=== PATIENT | female | born 1940 | race Hispanic/Latino ===

== ENCOUNTER → 2017-02-13 | Outpatient (CLI) | payer MEDICARE ==
[~2017-02-13] MED LIST: AEC81 PO; ALEN70TA47 PO; ATOR20TA65 PO; CARV12.580 PO; FE F1CAP8 PO; FURO20TA4 PO; FURO40TA7 PO; HYDR-4153 PO; INSLAN SQ; INSNOV SQ; Isosorbide Mono 30MG Tab Sr PO; LISI-613 PO; METO2.5T2 PO; METO50TA18 PO; SIME80TA12 PO; TRAM50TA4 PO; VIT D3 PO
== END | disposition home or self-care (01) ==
LOC: SHCH 08:02
PROVIDERS: ATTEND Internal Medicine Cardiovascular Disease
DX: I34.0 Nonrheumatic mitral (valve) insufficiency (principal); I44.7 Left bundle-branch block, unspecified
CPT/HCPCS: 93306

== ENCOUNTER 2017-02-27 14:10 | Inpatient (IN) | payer MEDICARE ==
[~2017-02-27] VITALS: Ht 152.4 cm; Wt 61.8 kg
[2017-02-27] MEDS ORDERED: ASPIRIN 325 MG TABLET ONE (14:39)
[2017-02-27] MEDS ORDERED: FUROSEMIDE 10 MG/ML 4ML VIAL ONE ×2 (14:39→16:18)
[2017-02-27 15:02] LABS: BASOPHILS % (AUTO) 1.4 % (0.0-5.0); EOSINOPHILS % (AUTO) 2.2 % (0.0-8.0); HEMATOCRIT 36.4 % (36-48); MEAN CORPUSCULAR HEMOGLOBIN 28.1 pg (27.0-33.0); MEAN CORPUSCULAR HGB CONC 31.9 g/dL (32.0-36.0); MEAN CORPUSCULAR VOLUME 87.8 fL (79-99); NEUTROPHILS % (AUTO) 64.4 % (40.0-77.0); PLATELET COUNT (AUTO) 259 K/uL (130-400); RED BLOOD CELL COUNT(AUTO) 4.14 MIL/uL (4.00-5.50); WHITE BLOOD COUNT (AUTO) 5.2 K/uL (4.8-10.8)
[2017-02-27 15:18] LABS: INR 1.09 (0.85-1.15); PARTIAL THROMBOPLASTIN TIME 32.2 SEC (26.3-35.5); PROTHROMBIN TIME 11.4 SEC (9.6-11.6)
[2017-02-27 15:40] LABS: B-TYPE NATRIURETIC PEPTIDE 4180 pg/mL (0-100)
[2017-02-27 15:43] LABS: CREATININE 2.2 mg/dL (0.5-1.5); POTASSIUM 4.6 mmol/L (3.5-5.1)
[2017-02-27 15:49] LABS: ALBUMIN 2.8 g/dL (3.5-5.0); BILIRUBIN,DIRECT 0.2 mg/dL (0.0-0.3); BILIRUBIN,TOTAL 0.5 mg/dL (0.2-1.0); TOTAL PROTEIN, SERUM 6.7 g/dL (6.0-8.3)
[2017-02-27 17:40] VITALS: BP 147/67
[2017-02-27] MEDS ORDERED: ONDANSETRON HCL 4 MG/2 ML VIAL IVP PRN (18:15)
[2017-02-27 19:37] VITALS: BP 158/79
[2017-02-27] MEDS ORDERED: TRAM50TA4 PO (20:20)
[2017-02-27] MEDS: TRAMADOL HCL 50 MG TABLET PO PRN (20:50)
[2017-02-27] MEDS: FUROSEMIDE 10 MG/ML 4ML VIAL IVP SCH (20:51)
[2017-02-27 23:47] VITALS: BP 137/63
[2017-02-28] MEDS: IPRATROPIUM/ALBUTEROL SULFATE 3 ML SOLUTION IH SCH ×5 (00:41→23:04)
[2017-02-28] MEDS ORDERED: DEXTROSE 50%-WATER 50 ML DISP.SYRIN IV PRN (01:00)
[2017-02-28] MEDS ORDERED: GLUCAGON 1MG KIT 1 MG ML IM PRN (01:00)
[2017-02-28] MEDS ORDERED: HYDRALAZINE HCL 20 MG/ML VIAL IV PRN (01:00)
[2017-02-28] MEDS ORDERED: POTASSIUM CHLORIDE 10% ELIXIR 20 MEQ/15 ML UDCUP PO PRN (01:00)
[2017-02-28] MEDS ORDERED: POTASSIUM CHLORIDE 20MEQ/100ML 100 ML IV PRN (01:00)
[2017-02-28] MEDS ORDERED: POTASSIUM CHLORIDE 20 MEQ ERTAB PO PRN (01:00)
[2017-02-28] MEDS ORDERED: LACTULOSE 20 GM/30 ML UDCUP PO PRN (01:00)
[2017-02-28] MEDS ORDERED: LIDOCAINE HCL-MPF 1% 2ML VIAL IVP PRN (01:00)
[2017-02-28 03:59] VITALS: BP 137/64
[2017-02-28 04:33] LABS: HEMATOCRIT 33.3 % (36-48); MEAN CORPUSCULAR HEMOGLOBIN 28.2 pg (27.0-33.0); MEAN CORPUSCULAR HGB CONC 32.3 g/dL (32.0-36.0); MEAN CORPUSCULAR VOLUME 87.2 fL (79-99); PLATELET COUNT (AUTO) 253 K/uL (130-400); RED BLOOD CELL COUNT(AUTO) 3.82 MIL/uL (4.00-5.50); RED CELL DISTRIBUTION WIDTH 17.3 % (11.0-15.5); WHITE BLOOD COUNT (AUTO) 5.2 K/uL (4.8-10.8)
[2017-02-28 04:57] LABS: CREATININE 2.4 mg/dL (0.5-1.5)
[2017-02-28 05:13] LABS: B-TYPE NATRIURETIC PEPTIDE 4000 pg/mL (0-100)
[2017-02-28] MEDS: INSULIN HUMULIN R 100 UNIT/ML 3ML SQ SCH ×4 (05:55→21:00)
[2017-02-28 07:00] VITALS: BP 126/60
[2017-02-28] MEDS: FAMOTIDINE 20MG TAB 20 MG TAB PO SCH (08:14)
[2017-02-28] MEDS: ASPIRIN 325 MG TABLET PO SCH (08:14)
[2017-02-28] MEDS: FUROSEMIDE 10 MG/ML 4ML VIAL IVP SCH ×2 (08:15→21:15)
[2017-02-28] MEDS: ENOXAPARIN SODIUM 30 MG/0.3 ML SQ SCH (10:00)
[2017-02-28 10:13] LABS: APPEARANCE,URINE Clear (CLEAR); BILIRUBIN,URINE Negative (NEGATIVE); COLOR,URINE Yellow (YELLOW); GLUCOSE, URINE (UA) Negative (NEGATIVE); KETONES,URINE Negative (NEGATIVE); LEUKOCYTE ESTERASE ,URINE Negative (NEGATIVE); NITRATE,URINE Negative (NEGATIVE); OCCULT BLOOD,URINE Negative (NEGATIVE); PROTEIN,URINE Trace (NEGATIVE); UROBILINOGEN,URINE 0.2 mg/dL (0.2-1.0)
[2017-02-28] MEDS ORDERED: LISI-613 PO (10:13)
[2017-02-28] MEDS ORDERED: METO50TA18 PO (10:13)
[2017-02-28] MEDS ORDERED: FURO20TA4 PO (10:13)
[2017-02-28] MEDS ORDERED: INSLAN SQ (10:13)
[2017-02-28] MEDS ORDERED: SIME80TA12 PO (10:13)
[2017-02-28] MEDS ORDERED: INSNOV SQ (10:13)
[2017-02-28] MEDS ORDERED: ATOR20TA65 PO (10:13)
[2017-02-28] MEDS ORDERED: VIT D3 PO (10:13)
[2017-02-28] MEDS ORDERED: FE F1CAP8 PO (10:13)
[2017-02-28 10:43] LABS: BACTERIA,URINE Few /HPF (None Seen); RBC,URINE 0-1 /HPF (0-1); WBC,URINE 0-1 /HPF (0-1)
[2017-02-28 11:00] VITALS: BP 139/68
[2017-02-28 16:00] VITALS: BP 135/76
[2017-02-28] MEDS: TRAMADOL HCL 50 MG TABLET PO PRN (16:20)
[2017-02-28 20:31] VITALS: BP 148/72
[2017-03-01] VITALS (7 sets, daily range): BP systolic 125–159; BP diastolic 59–79
[2017-03-01 05:10] LABS: CREATININE 2.7 mg/dL (0.5-1.5); MAGNESIUM 1.7 mg/dL (1.80-2.40); PHOSPHORUS 3.5 mg/dL (2.5-4.9); POTASSIUM 4.3 mmol/L (3.5-5.1); URIC ACID 6.1 mg/dL (2.6-7.2)
[2017-03-01 05:13] LABS: % IRON SATURATION 10.5 % (22-44)
[2017-03-01] MEDS: INSULIN HUMULIN R 100 UNIT/ML 3ML SQ SCH ×4 (06:07→21:00)
[2017-03-01] MEDS: IPRATROPIUM/ALBUTEROL SULFATE 3 ML SOLUTION IH SCH ×4 (06:14→23:33)
[2017-03-01] MEDS: FOLIC ACID/VITAMIN B COMP W-C 1 MG CAPSULE PO SCH (07:41)
[2017-03-01] MEDS: ASPIRIN 325 MG TABLET PO SCH (07:41)
[2017-03-01] MEDS: FAMOTIDINE 20MG TAB 20 MG TAB PO SCH (07:41)
[2017-03-01] MEDS: ENOXAPARIN SODIUM 30 MG/0.3 ML SQ SCH (07:42)
[2017-03-01] MEDS ORDERED: MAGNESIUM 2GM PREMIX 50ML 50 ML IV SCH (08:15)
[2017-03-01] MEDS: FUROSEMIDE 10 MG/ML 4ML VIAL IVP SCH (08:32)
[2017-03-01] MEDS: FUROSEMIDE 40 MG TABLET PO SCH ×2 (09:00→16:35)
[2017-03-01] MEDS: TRAMADOL HCL 50 MG TABLET PO PRN ×2 (09:40→20:17)
[2017-03-01] MEDS ORDERED: COMPOUND IV MISC 1 EACH IVSOLN MISC PRN (13:45)
[2017-03-01] MEDS: IRON SUCROSE COMPLEX 100 MG in SODIUM CHLORIDE 0.9% 50 ML IV SCH (20:01)
[2017-03-02 03:42] LABS: HEMATOCRIT 30.7 % (36-48); MEAN CORPUSCULAR HEMOGLOBIN 29.4 pg (27.0-33.0); MEAN CORPUSCULAR HGB CONC 32.9 g/dL (32.0-36.0); MEAN CORPUSCULAR VOLUME 89.4 fL (79-99); PLATELET COUNT (AUTO) 202 K/uL (130-400); RED BLOOD CELL COUNT(AUTO) 3.44 MIL/uL (4.00-5.50); RED CELL DISTRIBUTION WIDTH 16.9 % (11.0-15.5); WHITE BLOOD COUNT (AUTO) 4.8 K/uL (4.8-10.8)
[2017-03-02 03:44] VITALS: BP 145/79
[2017-03-02 04:01] LABS: CREATININE 2.7 mg/dL (0.5-1.5); POTASSIUM 4.4 mmol/L (3.5-5.1)
[2017-03-02] MEDS: IPRATROPIUM/ALBUTEROL SULFATE 3 ML SOLUTION IH SCH ×3 (05:58→17:57)
[2017-03-02] MEDS: INSULIN HUMULIN R 100 UNIT/ML 3ML SQ SCH ×4 (07:10→21:00)
[2017-03-02] MEDS: ASPIRIN 325 MG TABLET PO SCH (07:11)
[2017-03-02] MEDS: FAMOTIDINE 20MG TAB 20 MG TAB PO SCH (07:11)
[2017-03-02] MEDS: FOLIC ACID/VITAMIN B COMP W-C 1 MG CAPSULE PO SCH (07:11)
[2017-03-02] MEDS: ENOXAPARIN SODIUM 30 MG/0.3 ML SQ SCH (07:11)
[2017-03-02] MEDS: FUROSEMIDE 40 MG TABLET PO SCH ×2 (07:11→17:11)
[2017-03-02 07:22] VITALS: BP 153/85
[2017-03-02] MEDS ORDERED: MAGNESIUM CITRATE 296 ML SOLUTION PO PRN (08:15)
[2017-03-02] MEDS ORDERED: FUROSEMIDE 10 MG/ML 4ML VIAL IV SCH (08:15)
[2017-03-02] MEDS: METOPROLOL TARTRATE 50 MG TAB PO SCH ×2 (09:09→20:02)
[2017-03-02] MEDS: SIMETHICONE 80 MG TAB.CHEW PO SCH ×2 (09:09→20:02)
[2017-03-02] MEDS: FE FUMARATE/FA/MV, MIN COMB#15 1 TAB PO SCH (09:09)
[2017-03-02 11:36] VITALS: BP 145/78
[2017-03-02 16:25] VITALS: BP 146/67
[2017-03-02] MEDS: ATORVASTATIN CALCIUM 20 MG TABLET PO SCH (20:02)
[2017-03-02] MEDS: IRON SUCROSE COMPLEX 100 MG in SODIUM CHLORIDE 0.9% 50 ML IV SCH (20:02)
[2017-03-02 20:12] VITALS: BP 142/66
[2017-03-02 23:11] VITALS: BP 123/57
[2017-03-03] MEDS: IPRATROPIUM/ALBUTEROL SULFATE 3 ML SOLUTION IH SCH ×4 (00:17→18:53)
[2017-03-03 03:53] VITALS: BP 129/73
[2017-03-03 04:25] LABS: HEMATOCRIT 31.9 % (36-48); MEAN CORPUSCULAR HEMOGLOBIN 29.8 pg (27.0-33.0); MEAN CORPUSCULAR HGB CONC 33.5 g/dL (32.0-36.0); MEAN CORPUSCULAR VOLUME 88.9 fL (79-99); PLATELET COUNT (AUTO) 212 K/uL (130-400); RED BLOOD CELL COUNT(AUTO) 3.59 MIL/uL (4.00-5.50); RED CELL DISTRIBUTION WIDTH 16.6 % (11.0-15.5); WHITE BLOOD COUNT (AUTO) 5.7 K/uL (4.8-10.8)
[2017-03-03 04:39] LABS: CREATININE 2.8 mg/dL (0.5-1.5); POTASSIUM 4.1 mmol/L (3.5-5.1)
[2017-03-03] MEDS: INSULIN HUMULIN R 100 UNIT/ML 3ML SQ SCH ×4 (05:28→20:32)
[2017-03-03 07:31] VITALS: BP 154/71
[2017-03-03] MEDS: ENOXAPARIN SODIUM 30 MG/0.3 ML SQ SCH (09:00)
[2017-03-03] MEDS: ASPIRIN 325 MG TABLET PO SCH (09:00)
[2017-03-03] MEDS: FE FUMARATE/FA/MV, MIN COMB#15 1 TAB PO SCH (09:11)
[2017-03-03] MEDS: METOPROLOL TARTRATE 50 MG TAB PO SCH ×2 (09:11→20:02)
[2017-03-03] MEDS: SIMETHICONE 80 MG TAB.CHEW PO SCH ×2 (09:11→20:02)
[2017-03-03] MEDS: FUROSEMIDE 40 MG TABLET PO SCH ×2 (09:11→18:27)
[2017-03-03] MEDS: FAMOTIDINE 20MG TAB 20 MG TAB PO SCH (09:11)
[2017-03-03] MEDS: FOLIC ACID/VITAMIN B COMP W-C 1 MG CAPSULE PO SCH (09:11)
[2017-03-03 11:05] LABS: GLUCOSE,BODY FLUID 119 mg/dL (1-40)
[2017-03-03 11:27] VITALS: BP 161/68
[2017-03-03 12:27] LABS: APPEARANCE BODY FLUID CLEAR (CLEAR); BODY FLUID WBC 47 /cu. mm.; COLOR,BODY FLUID YELLOW (LT YELLOW); SPECIMENTYPE,BODY FLUID THORACENTESIS; TOTAL VOLUME,BODY FLUID 950 mL
[2017-03-03 12:28] LABS: BODY FLUID RBC 118 /cu. mm.
[2017-03-03 12:58] LABS: BF LYMPHOCYTE 65 %; BF MESOTHELIAL 27 %; BF MONOCYTE 4 %
[2017-03-03 13:00] LABS: PH, BODY FLUID 7
[2017-03-03] MEDS: TRAMADOL HCL 50 MG TABLET PO PRN (14:38)
[2017-03-03 16:23] VITALS: BP 150/70
[2017-03-03 19:31] VITALS: BP 132/55
[2017-03-03] MEDS: IRON SUCROSE COMPLEX 100 MG in SODIUM CHLORIDE 0.9% 50 ML IV SCH (20:02)
[2017-03-03] MEDS: ATORVASTATIN CALCIUM 20 MG TABLET PO SCH (20:02)
[2017-03-03 23:19] VITALS: BP 123/57
[2017-03-04] MEDS: IPRATROPIUM/ALBUTEROL SULFATE 3 ML SOLUTION IH SCH ×3 (01:26→13:24)
[2017-03-04 04:00] VITALS: BP 136/61
[2017-03-04 04:49] LABS: CREATININE 3.2 mg/dL (0.5-1.5); POTASSIUM 4.1 mmol/L (3.5-5.1)
[2017-03-04] MEDS: INSULIN HUMULIN R 100 UNIT/ML 3ML SQ SCH (05:43)
[2017-03-04 07:00] VITALS: BP 143/67
[2017-03-04] MEDS ORDERED: FURO40TA7 PO (07:17)
[2017-03-04] MEDS: FE FUMARATE/FA/MV, MIN COMB#15 1 TAB PO SCH (08:37)
[2017-03-04] MEDS: SIMETHICONE 80 MG TAB.CHEW PO SCH (08:37)
[2017-03-04] MEDS: METOPROLOL TARTRATE 50 MG TAB PO SCH (08:37)
[2017-03-04] MEDS: FAMOTIDINE 20MG TAB 20 MG TAB PO SCH (08:37)
[2017-03-04] MEDS: ASPIRIN 325 MG TABLET PO SCH (08:37)
[2017-03-04] MEDS: FOLIC ACID/VITAMIN B COMP W-C 1 MG CAPSULE PO SCH (08:37)
[2017-03-04] MEDS: FUROSEMIDE 40 MG TABLET PO SCH (08:37)
[2017-03-04] MEDS: ENOXAPARIN SODIUM 30 MG/0.3 ML SQ SCH (08:42)
[2017-03-04 11:00] VITALS: BP 152/60
== END 2017-03-04 14:40 | disposition home or self-care (01) | DRG 291 ==
LOC: EDH 14:10 → EDHIP 16:00 → OBSVTOIN 16:00 → 2AH 17:16 → 2DH 03-04 00:33
PROVIDERS: ADMIT Internal Medicine; ATTEND Internal Medicine
PROC: 0W993ZZ Drainage of Right Pleural Cavity, Percutaneous Approach (ICD-10-PCS; principal; 2017-03-03)
DX: I13.0 Hypertensive heart and chronic kidney disease with heart failure and stage 1 through stage 4 chronic kidney disease, or unspecified chronic kidney disease (principal); I50.23 Acute on chronic systolic (congestive) heart failure; N17.9 Acute kidney failure, unspecified; E11.21 Type 2 diabetes mellitus with diabetic nephropathy; E11.51 Type 2 diabetes mellitus with diabetic peripheral angiopathy without gangrene; E44.1 Mild protein-calorie malnutrition; D64.9 Anemia, unspecified; N18.9 Chronic kidney disease, unspecified; E11.22 Type 2 diabetes mellitus with diabetic chronic kidney disease; E11.649 Type 2 diabetes mellitus with hypoglycemia without coma; E78.5 Hyperlipidemia, unspecified; I42.9 Cardiomyopathy, unspecified; I44.7 Left bundle-branch block, unspecified; Z91.19 Patient's noncompliance with other medical treatment and regimen; Z68.26 Body mass index [BMI] 26.0-26.9, adult; Z28.21 Immunization not carried out because of patient refusal
CPT/HCPCS: 32555; 36415; 71045; 71046; 76770; 80048; 80061; 80076; 81001; 82550; 82728; 82945; 82948; 83540; 83550; 83615; 83735; 83880; 83986; 84100; 84157; 84484; 84550; 85025; 85027; 85610; 85730; 87071; 87205; 88108; 88305; 89051; 93005; 93306; 94640; 94664; J0360; J1650; J1756; J1815; J1940; J2405; J3475

== ENCOUNTER → 2017-03-17 | Outpatient (CLI) | payer MEDICARE ==
[~2017-03-17] MED LIST changes: -LISI-613 PO
== END | disposition home or self-care (01) ==
LOC: SHCH 09:30
PROVIDERS: ATTEND Internal Medicine Cardiovascular Disease
DX: I73.9 Peripheral vascular disease, unspecified (principal); I87.2 Venous insufficiency (chronic) (peripheral); R60.9 Edema, unspecified; I34.0 Nonrheumatic mitral (valve) insufficiency
CPT/HCPCS: 93925; 93970

== ENCOUNTER → 2017-03-17 | Outpatient (CLI) | payer MEDICARE | END | disposition home or self-care (01) | LOC: SHCH 09:06 | PROVIDERS: ATTEND Internal Medicine Cardiovascular Disease | DX: I87.2 Venous insufficiency (chronic) (peripheral) (principal); I34.0 Nonrheumatic mitral (valve) insufficiency | CPT/HCPCS: 93970 ==

== ENCOUNTER 2017-06-25 06:20 | Inpatient (IN) | payer MEDICARE ==
[~2017-06-25] VITALS: Ht 152.4 cm; Wt 57.2 kg
[~2017-06-25 06:20] MED LIST changes: -AEC81 PO; -ALEN70TA47 PO; -CARV12.580 PO; -FURO20TA4 PO; -HYDR-4153 PO; -Isosorbide Mono 30MG Tab Sr PO; -METO2.5T2 PO
[2017-06-25] MEDS ORDERED: ONDANSETRON HCL MDV 20ML 2 MG/ML VIAL ONE (06:37)
[2017-06-25 06:52] LABS: BASOPHILS % (AUTO) 0.8 % (0.0-5.0); HEMATOCRIT 41.4 % (36-48); LYMPHOCYTES % (AUTO) 14.3 % (21.0-51.0); MEAN CORPUSCULAR HEMOGLOBIN 32.2 pg (27.0-33.0); MEAN CORPUSCULAR VOLUME 97.7 fL (79-99); MONOCYTES % (AUTO) 6.6 % (3.0-13.0); NEUTROPHILS % (AUTO) 75.3 % (40.0-77.0); NUCLEATED RED BLOOD CELLS 0.1 % (0.0-0.19); PLATELET COUNT (AUTO) 158 K/uL (130-400); RED BLOOD CELL COUNT(AUTO) 4.24 MIL/uL (4.00-5.50); RED CELL DISTRIBUTION WIDTH 17.9 % (11.0-15.5); WHITE BLOOD COUNT (AUTO) 6.8 K/uL (4.8-10.8)
[2017-06-25 07:02] LABS: CREATININE 3.2 mg/dL (0.5-1.5); POTASSIUM 5.2 mmol/L (3.5-5.1)
[2017-06-25 07:12] LABS: ALBUMIN 2.8 g/dL (3.5-5.0); BILIRUBIN,TOTAL 1.1 mg/dL (0.2-1.0); TOTAL PROTEIN, SERUM 6.7 g/dL (6.0-8.3)
[2017-06-25] MEDS ORDERED: SODIUM CHLORIDE 0.9% 500ML 500 ML IV ONE (07:18)
[2017-06-25] MEDS ORDERED: TETANUS/DIPHTHERIA TOXOID [ADULT] 0.5 ML VIAL IM ONE (07:18)
[2017-06-25 08:08] LABS: APPEARANCE,URINE Cloudy (CLEAR); BILIRUBIN,URINE Moderate (NEGATIVE); COLOR,URINE Dark Yellow (YELLOW); GLUCOSE, URINE (UA) 500 mg/dL (NEGATIVE); KETONES,URINE Trace mg/dL (NEGATIVE); LEUKOCYTE ESTERASE ,URINE Trace (NEGATIVE); NITRATE,URINE Negative (NEGATIVE); OCCULT BLOOD,URINE Negative (NEGATIVE); PROTEIN,URINE 300 (NEGATIVE)
[2017-06-25 08:13] LABS: BACTERIA,URINE Rare /HPF (None Seen); RBC,URINE 0-1 /HPF (0-1); SQUAMOUS EPITHELIAL CELL,UR Rare /HPF (0-2); WBC,URINE 0-1 /HPF (0-1)
[2017-06-25] MEDS: SODIUM CHLORIDE 0.9% 1000ML 1,000 ML IV SCH ×2 (15:00→21:55)
[2017-06-25] MEDS ORDERED: ACETAMINOPHEN 325 MG TAB PO PRN ×2 (15:00)
[2017-06-25] MEDS ORDERED: CLONIDINE HCL 0.1 MG TABLET PO PRN (15:00)
[2017-06-25] MEDS ORDERED: ACETAMINOPHEN ELIXIR 650 MG/20.3 ML UDCUP ONE (15:05)
[2017-06-25 17:43] VITALS: BP 159/67
[2017-06-25 19:21] VITALS: BP 141/65
[2017-06-25] MEDS ORDERED: FURO20TA4 PO (19:34)
[2017-06-25] MEDS ORDERED: METO2.5T2 PO (19:34)
[2017-06-25] MEDS ORDERED: HYDR-4153 PO (19:34)
[2017-06-25] MEDS ORDERED: ALEN70TA47 PO (19:34)
[2017-06-25] MEDS: ONDANSETRON HCL 4 MG/2 ML VIAL IVP PRN (19:47)
[2017-06-25 23:36] VITALS: BP 137/61
[2017-06-25] MEDS ORDERED: GLUCAGON 1MG KIT 1 MG ML IM PRN (23:45)
[2017-06-25] MEDS: SODIUM POLYSTYRENE SULFONATE 15 GM/60 ML ML PO SCH (23:45)
[2017-06-25] MEDS ORDERED: DEXTROSE 50%-WATER 50 ML DISP.SYRIN IV PRN (23:45)
[2017-06-25] MEDS: FUROSEMIDE 10 MG/ML 2ML VIAL IV SCH (23:45)
[2017-06-25] MEDS ORDERED: FUROSEMIDE 10 MG/ML 2ML VIAL ONE (23:48)
[2017-06-25] MEDS ORDERED: SODIUM POLYSTYRENE SULFONATE 15 GM/60 ML ML ONE (23:49)
[2017-06-26 03:00] VITALS: BP 147/64
[2017-06-26 05:14] LABS: HEMATOCRIT 39.3 % (36-48); MEAN CORPUSCULAR HEMOGLOBIN 31.1 pg (27.0-33.0); MEAN CORPUSCULAR HGB CONC 33.6 g/dL (32.0-36.0); MEAN CORPUSCULAR VOLUME 92.6 fL (79-99); NUCLEATED RED BLOOD CELLS 0.1 % (0.0-0.19); PLATELET COUNT (AUTO) 233 K/uL (130-400); RED BLOOD CELL COUNT(AUTO) 4.25 MIL/uL (4.00-5.50); WHITE BLOOD COUNT (AUTO) 6.9 K/uL (4.8-10.8)
[2017-06-26 05:29] LABS: B-TYPE NATRIURETIC PEPTIDE > 5000 pg/mL (0-100)
[2017-06-26 05:37] LABS: CREATINE KINASE MB 2.9 ng/mL (0.5-3.6); CREATININE 3.5 mg/dL (0.5-1.5); POTASSIUM 4.8 mmol/L (3.5-5.1); TROPONIN I 0.29 ng/mL (0.00-0.06)
[2017-06-26] MEDS: INSULIN HUMULIN R 100 UNIT/ML 3ML SQ SCH ×4 (06:14→20:27)
[2017-06-26 07:58] VITALS: BP 163/71
[2017-06-26] MEDS ORDERED: FUROSEMIDE 10 MG/ML 2ML VIAL IV SCH (09:00)
[2017-06-26] MEDS: FAMOTIDINE 20MG TAB 20 MG TAB PO SCH ×2 (09:04→20:31)
[2017-06-26] MEDS: ALENDRONATE SODIUM 35 MG TAB PO SCH (10:41)
[2017-06-26 11:38] VITALS: BP 152/67
[2017-06-26] MEDS: INSULIN GLARGINE 100 UNITS/ML 10 ML VIAL SQ SCH (16:30)
[2017-06-26 16:45] VITALS: BP 154/75
[2017-06-26 16:46] VITALS: BP_SYST 139; BP_SYST 140; BP_DIAS 64; BP_DIAS 67
[2017-06-26 20:00] VITALS: BP 134/60
[2017-06-26] MEDS: METOPROLOL TARTRATE 50 MG TAB PO SCH (20:26)
[2017-06-26] MEDS: ATORVASTATIN CALCIUM 20 MG TABLET PO SCH (20:30)
[2017-06-26] MEDS: HYDRALAZINE HCL 25 MG TABLET PO SCH (20:31)
[2017-06-26] MEDS: FUROSEMIDE 20 MG TABLET PO SCH (20:31)
[2017-06-26] MEDS: FUROSEMIDE 10 MG/ML 2ML VIAL IV SCH (23:45)
[2017-06-26] MEDS: SODIUM POLYSTYRENE SULFONATE 15 GM/60 ML ML PO SCH (23:45)
[2017-06-27] VITALS (7 sets, daily range): BP systolic 113–153; BP diastolic 54–76
[2017-06-27 05:44] LABS: HEMATOCRIT 39.8 % (36-48); MEAN CORPUSCULAR HEMOGLOBIN 32.3 pg (27.0-33.0); MEAN CORPUSCULAR HGB CONC 33.9 g/dL (32.0-36.0); MEAN CORPUSCULAR VOLUME 95.4 fL (79-99); NUCLEATED RED BLOOD CELLS 0.1 % (0.0-0.19); PLATELET COUNT (AUTO) 202 K/uL (130-400); RED BLOOD CELL COUNT(AUTO) 4.17 MIL/uL (4.00-5.50); RED CELL DISTRIBUTION WIDTH 17.5 % (11.0-15.5)
[2017-06-27 05:51] LABS: CREATININE 3.4 mg/dL (0.5-1.5); POTASSIUM 4.4 mmol/L (3.5-5.1)
[2017-06-27 06:09] LABS: B-TYPE NATRIURETIC PEPTIDE > 5000 pg/mL (0-100)
[2017-06-27] MEDS: INSULIN GLARGINE 100 UNITS/ML 10 ML VIAL SQ SCH ×2 (06:27→16:30)
[2017-06-27] MEDS: INSULIN HUMULIN R 100 UNIT/ML 3ML SQ SCH ×4 (06:27→21:00)
[2017-06-27] MEDS: FUROSEMIDE 20 MG TABLET PO SCH ×2 (10:27→21:45)
[2017-06-27] MEDS: HYDRALAZINE HCL 25 MG TABLET PO SCH ×2 (10:27→21:44)
[2017-06-27] MEDS: METOPROLOL TARTRATE 50 MG TAB PO SCH ×2 (10:27→21:44)
[2017-06-27] MEDS: FAMOTIDINE 20MG TAB 20 MG TAB PO SCH ×2 (10:27→21:44)
[2017-06-27] MEDS: ENOXAPARIN SODIUM 30 MG/0.3 ML SQ SCH (10:28)
[2017-06-27] MEDS: METOLAZONE 2.5 MG TABLET PO SCH (10:30)
[2017-06-27] MEDS: LACTULOSE 20 GM/30 ML UDCUP PO PRN (10:39)
[2017-06-27] MEDS: ATORVASTATIN CALCIUM 20 MG TABLET PO SCH (21:45)
[2017-06-27] MEDS: FUROSEMIDE 10 MG/ML 2ML VIAL IV SCH (23:45)
[2017-06-27] MEDS: SODIUM POLYSTYRENE SULFONATE 15 GM/60 ML ML PO SCH (23:45)
[2017-06-28] MEDS: MORPHINE SULFATE 4 MG/1ML SYG IVP PRN ×3 (00:40→17:40)
[2017-06-28 03:45] VITALS: BP 120/54
[2017-06-28] MEDS: INSULIN HUMULIN R 100 UNIT/ML 3ML SQ SCH ×4 (07:30→21:00)
[2017-06-28 07:56] VITALS: BP 141/60
[2017-06-28] MEDS: ALENDRONATE SODIUM 35 MG TAB PO SCH (11:20)
[2017-06-28] MEDS: HYDRALAZINE HCL 25 MG TABLET PO SCH ×2 (11:21→21:42)
[2017-06-28] MEDS: METOPROLOL TARTRATE 50 MG TAB PO SCH (11:21)
[2017-06-28] MEDS: FUROSEMIDE 20 MG TABLET PO SCH ×2 (11:21→21:42)
[2017-06-28] MEDS: INSULIN GLARGINE 100 UNITS/ML 10 ML VIAL SQ SCH ×2 (11:22→16:30)
[2017-06-28] MEDS: FAMOTIDINE 20MG TAB 20 MG TAB PO SCH ×2 (11:22→21:42)
[2017-06-28] MEDS: ENOXAPARIN SODIUM 30 MG/0.3 ML SQ SCH (11:24)
[2017-06-28 12:13] VITALS: BP 153/71
[2017-06-28] MEDS: ISOSORBIDE MONO 30MG TAB SR PO SCH (14:45)
[2017-06-28 16:16] VITALS: BP 119/50
[2017-06-28] MEDS: ASPIRIN 81 MG EC TAB PO SCH (18:48)
[2017-06-28 19:50] VITALS: BP 120/55
[2017-06-28] MEDS: CARVEDILOL 12.5 MG TABLET PO SCH (21:00)
[2017-06-28] MEDS: ATORVASTATIN CALCIUM 20 MG TABLET PO SCH (21:42)
[2017-06-28] MEDS: SODIUM POLYSTYRENE SULFONATE 15 GM/60 ML ML PO SCH (23:08)
[2017-06-28] MEDS: FUROSEMIDE 10 MG/ML 2ML VIAL IV SCH (23:08)
[2017-06-28 23:50] VITALS: BP 115/53
[2017-06-29 03:25] VITALS: BP 140/59
[2017-06-29] MEDS: INSULIN HUMULIN R 100 UNIT/ML 3ML SQ SCH ×4 (06:15→21:18)
[2017-06-29] MEDS: INSULIN GLARGINE 100 UNITS/ML 10 ML VIAL SQ SCH ×2 (06:16→16:30)
[2017-06-29 06:17] LABS: CREATININE 3.4 mg/dL (0.5-1.5); POTASSIUM 4.2 mmol/L (3.5-5.1)
[2017-06-29 08:55] VITALS: BP 140/67
[2017-06-29] MEDS: ASPIRIN 81 MG EC TAB PO SCH (09:29)
[2017-06-29] MEDS: HYDRALAZINE HCL 25 MG TABLET PO SCH ×2 (09:29→20:58)
[2017-06-29] MEDS: ISOSORBIDE MONO 30MG TAB SR PO SCH (09:30)
[2017-06-29] MEDS: CARVEDILOL 12.5 MG TABLET PO SCH ×2 (09:30→20:59)
[2017-06-29] MEDS: FUROSEMIDE 20 MG TABLET PO SCH ×2 (09:31→20:59)
[2017-06-29] MEDS: ENOXAPARIN SODIUM 30 MG/0.3 ML SQ SCH (09:31)
[2017-06-29] MEDS: FAMOTIDINE 20MG TAB 20 MG TAB PO SCH ×2 (09:31→21:00)
[2017-06-29] MEDS ORDERED: FUROSEMIDE 10 MG/ML 4ML VIAL IV SCH (10:00)
[2017-06-29] MEDS ORDERED: CARV12.580 PO (10:27)
[2017-06-29] MEDS ORDERED: Isosorbide Mono 30MG Tab Sr PO (10:27)
[2017-06-29] MEDS ORDERED: AEC81 PO (10:27)
[2017-06-29 11:22] VITALS: BP 133/44
[2017-06-29 16:02] VITALS: BP 131/46
[2017-06-29 20:20] VITALS: BP 133/54
[2017-06-29] MEDS: ATORVASTATIN CALCIUM 20 MG TABLET PO SCH (20:58)
[2017-06-29] MEDS: FUROSEMIDE 10 MG/ML 2ML VIAL IV SCH (21:20)
[2017-06-29] MEDS: SODIUM POLYSTYRENE SULFONATE 15 GM/60 ML ML PO SCH (21:21)
[2017-06-29 23:15] VITALS: BP 131/57
[2017-06-30] MEDS: MORPHINE SULFATE 4 MG/1ML SYG IVP PRN (02:42)
[2017-06-30 04:15] VITALS: BP 133/60
[2017-06-30] MEDS: ONDANSETRON HCL 4 MG/2 ML VIAL IVP PRN (05:30)
[2017-06-30] MEDS: LACTULOSE 20 GM/30 ML UDCUP PO PRN (06:14)
[2017-06-30] MEDS: INSULIN HUMULIN R 100 UNIT/ML 3ML SQ SCH ×3 (06:37→17:55)
[2017-06-30] MEDS: INSULIN GLARGINE 100 UNITS/ML 10 ML VIAL SQ SCH ×2 (06:49→17:55)
[2017-06-30 07:41] VITALS: BP 141/55
[2017-06-30] MEDS: FUROSEMIDE 20 MG TABLET PO SCH (09:05)
[2017-06-30] MEDS: ISOSORBIDE MONO 30MG TAB SR PO SCH (09:06)
[2017-06-30] MEDS: HYDRALAZINE HCL 25 MG TABLET PO SCH (09:06)
[2017-06-30] MEDS: FAMOTIDINE 20MG TAB 20 MG TAB PO SCH (09:06)
[2017-06-30] MEDS: ASPIRIN 81 MG EC TAB PO SCH (09:06)
[2017-06-30] MEDS: CARVEDILOL 12.5 MG TABLET PO SCH (09:06)
[2017-06-30] MEDS: ENOXAPARIN SODIUM 30 MG/0.3 ML SQ SCH (09:07)
[2017-06-30] MEDS: METOLAZONE 2.5 MG TABLET PO SCH (09:14)
[2017-06-30 11:14] VITALS: BP 142/58
[2017-06-30 16:31] VITALS: BP 128/55
== END 2017-06-30 20:05 | disposition home or self-care (01) | DRG 551 ==
LOC: EDH 06:20 → EDHIP 14:37 → OBSVTOIN 14:37 → 4BH 16:57
PROVIDERS: ADMIT Family Medicine; ATTEND Family Medicine
DX: S12.601A Unspecified nondisplaced fracture of seventh cervical vertebra, initial encounter for closed fracture (principal); I50.23 Acute on chronic systolic (congestive) heart failure; N18.4 Chronic kidney disease, stage 4 (severe); E11.22 Type 2 diabetes mellitus with diabetic chronic kidney disease; S02.40FA Zygomatic fracture, left side, initial encounter for closed fracture; I13.0 Hypertensive heart and chronic kidney disease with heart failure and stage 1 through stage 4 chronic kidney disease, or unspecified chronic kidney disease; W18.2XXA Fall in (into) shower or empty bathtub, initial encounter; E78.5 Hyperlipidemia, unspecified; S00.12XA Contusion of left eyelid and periocular area, initial encounter; I25.10 Atherosclerotic heart disease of native coronary artery without angina pectoris; I25.5 Ischemic cardiomyopathy; I34.0 Nonrheumatic mitral (valve) insufficiency; S51.012A Laceration without foreign body of left elbow, initial encounter; I44.7 Left bundle-branch block, unspecified; Z79.4 Long term (current) use of insulin; Z79.83 Long term (current) use of bisphosphonates; Z79.899 Other long term (current) drug therapy; Y93.89 Activity, other specified; Y92.091 Bathroom in other non-institutional residence as the place of occurrence of the external cause; Y99.8 Other external cause status; Z28.21 Immunization not carried out because of patient refusal
CPT/HCPCS: 36415; 70450; 70486; 71045; 72125; 80048; 80053; 81001; 82550; 82553; 82948; 83874; 83880; 84484; 85025; 85027; 90714; 93005; 93306; 97039; J1650; J1815; J1940; J2270; J2405; J7040

== ENCOUNTER → 2017-07-28 | Outpatient (CLI) | payer MEDICARE ==
[~2017-07-28] MED LIST changes: +AEC81 PO; +ALEN70TA47 PO; +CARV12.580 PO; -FE F1CAP8 PO; +FURO20TA4 PO; -FURO40TA7 PO; +HYDR-4153 PO; +Isosorbide Mono 30MG Tab Sr PO; +METO2.5T2 PO; -METO50TA18 PO; -SIME80TA12 PO; -TRAM50TA4 PO; -VIT D3 PO
== END | disposition home or self-care (01) ==
LOC: RAH 14:24
PROVIDERS: ATTEND Neurological Surgery
DX: M43.8X6 Other specified deforming dorsopathies, lumbar region (principal); M54.16 Radiculopathy, lumbar region
CPT/HCPCS: 72131

== ENCOUNTER 2018-11-03 21:15 | Inpatient (IN) | payer MEDICARE ==
[~2018-11-03] VITALS: Ht 139.7 cm; Wt 73.8 kg
[~2018-11-03 21:15] MED LIST changes: +ALEN70TA10 PO; -ALEN70TA47 PO; -FURO20TA4 PO; +FURO40TA5 PO; -INSLAN SQ; -INSNOV SQ; +INSU100I3 SQ; +INSU3INS3 SQ; +TRAM50TA4 PO; +VITAMIN D2 PO
[2018-11-03 22:01] LABS: EOSINOPHILS % (AUTO) 4.2 % (0.0-8.0); LYMPHOCYTES % (AUTO) 38.4 % (21.0-51.0); MEAN CORPUSCULAR HEMOGLOBIN 34.3 pg (27.0-33.0); MEAN CORPUSCULAR HGB CONC 34.7 g/dL (32.0-36.0); MEAN CORPUSCULAR VOLUME 98.9 fL (79-99); MONOCYTES % (AUTO) 9.2 % (3.0-13.0); NEUTROPHILS % (AUTO) 47.2 % (40.0-77.0); PLATELET COUNT (AUTO) 230 K/uL (130-400); RED CELL DISTRIBUTION WIDTH 12.5 % (11.0-15.5); WHITE BLOOD COUNT (AUTO) 5.9 K/uL (4.8-10.8)
[2018-11-03 22:09] LABS: HEMATOCRIT 20.8 % (36-48)
[2018-11-03 22:15] LABS: INR 1.02 (0.85-1.15); PARTIAL THROMBOPLASTIN TIME 27.3 SEC (26.3-35.5); PROTHROMBIN TIME 10.7 SEC (9.6-11.6)
[2018-11-03 22:18] LABS: ALBUMIN 3.6 g/dL (3.5-5.0); BILIRUBIN,TOTAL 0.3 mg/dL (0.2-1.0); CREATININE 4.9 mg/dL (0.5-1.5); POTASSIUM 4.1 mmol/L (3.5-5.1); TOTAL PROTEIN, SERUM 7.5 g/dL (6.0-8.3)
[2018-11-03 22:28] LABS: B-TYPE NATRIURETIC PEPTIDE 727 pg/mL (0-100)
[2018-11-03 23:49] LABS: RETICULOCYTE % (AUTO) 1.78 % (0.42-2.23)
[2018-11-04 00:36] LABS: APPEARANCE,URINE Clear (CLEAR); BILIRUBIN,URINE Negative (NEGATIVE); COLOR,URINE Yellow (YELLOW); GLUCOSE, URINE (UA) TRACE mg/dL (NEGATIVE); KETONES,URINE Negative (NEGATIVE); LEUKOCYTE ESTERASE ,URINE Negative (NEGATIVE); NITRATE,URINE Negative (NEGATIVE); OCCULT BLOOD,URINE Negative (NEGATIVE); PH,URINE 5.5 (5.0-8.0); PROTEIN,URINE Trace mg/dL (NEGATIVE); UROBILINOGEN,URINE 0.2 mg/dL (0.2-1.0)
[2018-11-04 02:36] VITALS: BP 116/60
[2018-11-04] MEDS ORDERED: INSU100I24 SQ (02:42)
[2018-11-04] MEDS ORDERED: INSU100I3 SQ (02:42)
[2018-11-04] MEDS ORDERED: METO2.5T2 PO (02:42)
[2018-11-04 03:02] LABS: FERRITIN 137 ng/mL (15-150); IRON, SERUM 32 mcg/dL (50-170)
[2018-11-04 04:00] VITALS: BP_SYST 116; BP_SYST 122; BP_DIAS 57; BP_DIAS 60
[2018-11-04] MEDS: INSULIN HUMULIN R 100 UNIT/ML 3ML SQ SCH ×4 (06:52→21:22)
[2018-11-04 07:27] LABS: EOSINOPHILS % (AUTO) 4.6 % (0.0-8.0); LYMPHOCYTES % (AUTO) 35.8 % (21.0-51.0); MEAN CORPUSCULAR HEMOGLOBIN 31.7 pg (27.0-33.0); MEAN CORPUSCULAR HGB CONC 33.7 g/dL (32.0-36.0); MEAN CORPUSCULAR VOLUME 93.9 fL (79-99); MONOCYTES % (AUTO) 8.8 % (3.0-13.0); NEUTROPHILS % (AUTO) 49.8 % (40.0-77.0); PLATELET COUNT (AUTO) 206 K/uL (130-400); RED BLOOD CELL COUNT(AUTO) 2.17 MIL/uL (4.00-5.50); RED CELL DISTRIBUTION WIDTH 12.7 % (11.0-15.5)
[2018-11-04 07:37] LABS: HEMATOCRIT 20.4 % (36-48)
[2018-11-04 07:41] LABS: ALBUMIN 3.3 g/dL (3.5-5.0); BILIRUBIN,TOTAL 0.3 mg/dL (0.2-1.0); POTASSIUM 3.6 mmol/L (3.5-5.1)
[2018-11-04 08:00] VITALS: BP 114/51
[2018-11-04] MEDS ORDERED: FAMOTIDINE/PF 20 MG/2 ML VIAL IV SCH (09:00)
--- NOTE | 2018-11-04 09:12 | NUR ---
DR BERKOWITZ ROUNDED ON PATIENT ORDERS PLACED FOR U/S .
[2018-11-04] MEDS ORDERED: IRON SUCROSE COMPLEX 100 MG in SODIUM CHLORIDE 0.9% 50 ML IV SCH (09:15)
[2018-11-04] MEDS ORDERED: EPOETIN ALFA 10,000 UNIT/ML VIAL SQ SCH (09:15)
[2018-11-04] MEDS ORDERED: COMPOUND IV MISC 1 EACH IVSOLN MISC PRN (09:45)
[2018-11-04 10:03] LABS: INR 1.04 (0.85-1.15); PROTHROMBIN TIME 10.9 SEC (9.6-11.6)
[2018-11-04] MEDS ORDERED: SODIUM CHLORIDE 0.9% 500ML 500 ML IV ONE (11:18)
[2018-11-04 12:00] VITALS: BP 126/54
--- NOTE | 2018-11-04 12:00 | NUR ---
DR MEHTA PLACED ORDERS FOR EGD AND COLONOSCOPY IN AM .
[2018-11-04 16:00] VITALS: BP 138/54
--- NOTE | 2018-11-04 16:20 | NUR ---
DR PIRES ROUNDED ON PATIENT MED REC DONE.
[2018-11-04] MEDS ORDERED: TRAMADOL HCL 50 MG TABLET PO PRN (16:30)
--- NOTE | 2018-11-04 16:38 | NUR ---
ALAYNA MET W PT WITH SISTER AND SON AT BEDSIDE- PT HAS APT IN [facility], LIVES [facility] HAS PROVIDER SERVICES, 27HR /WK (HER G SON) SON OR SIS TER DRIVE TO APPOINTMENT; NO HH; HOME IS SAFE AND ACCESSIBLE; GAP HOME CM TO FOLLOW Addendum: 11/05/18 at 1804 by SHYANN DAVALOS RN CM Amended: Links added.
[2018-11-04] MEDS ORDERED: PHARMACY COMMUNICATION MISC SCH (16:45)
[2018-11-04] MEDS ORDERED: PEG 3350/NA SULF,BICARB,CL/KCL 4000 ML SOLN PO SCH (17:00)
[2018-11-04 19:30] VITALS: BP 142/81
[2018-11-04] MEDS ORDERED: TRAM50TA4 PO (21:00)
[2018-11-04] MEDS: ATORVASTATIN CALCIUM 20 MG TABLET PO SCH (21:12)
[2018-11-04] MEDS: TRAMADOL HCL 50 MG TABLET PO PRN (21:12)
[2018-11-04] MEDS: HYDRALAZINE HCL 25 MG TABLET PO SCH (21:13)
[2018-11-04] MEDS: CARVEDILOL 12.5 MG TABLET PO SCH (21:13)
[2018-11-04] MEDS: FUROSEMIDE 40 MG TABLET PO SCH (21:14)
[2018-11-05] VITALS (26 sets, daily range): BP systolic 97–194; BP diastolic 38–84
[2018-11-05 05:08] LABS: BASOPHILS % (AUTO) 1.1 % (0.0-5.0); EOSINOPHILS % (AUTO) 2.8 % (0.0-8.0); HEMATOCRIT 29.9 % (36-48); LYMPHOCYTES % (AUTO) 32.1 % (21.0-51.0); MEAN CORPUSCULAR HGB CONC 36.3 g/dL (32.0-36.0); MEAN CORPUSCULAR VOLUME 96.4 fL (79-99); PLATELET COUNT (AUTO) 206 K/uL (130-400); RED CELL DISTRIBUTION WIDTH 13.2 % (11.0-15.5); WHITE BLOOD COUNT (AUTO) 6.8 K/uL (4.8-10.8)
[2018-11-05] MEDS: INSULIN HUMULIN R 100 UNIT/ML 3ML SQ SCH ×4 (05:37→21:00)
[2018-11-05 05:40] LABS: ALBUMIN 3.2 g/dL (3.5-5.0); BILIRUBIN,TOTAL 0.5 mg/dL (0.2-1.0); CREATININE 4.6 mg/dL (0.5-1.5); PHOSPHORUS 6.5 mg/dL (2.5-4.9); THYROID STIMULATING HORMONE 0.65 uIU/mL (0.36-3.74); TOTAL PROTEIN, SERUM 7.1 g/dL (6.0-8.3)
[2018-11-05] MEDS ORDERED: POTASSIUM CHLORIDE 10% ELIXIR 20 MEQ/15 ML UDCUP PO PRN (06:15)
[2018-11-05] MEDS ORDERED: LIDOCAINE HCL-MPF 1% 2ML VIAL IV PRN (06:15)
[2018-11-05] MEDS ORDERED: POTASSIUM CHLORIDE 10MEQ/100ML 100 ML IV PRN (06:15)
[2018-11-05] MEDS ORDERED: Alendronate Sodium 70 MG PO SCH (07:00)
[2018-11-05] MEDS ORDERED: PROPOFOL 10 MG/ML 20ML VIAL IV ONE (08:35)
[2018-11-05] MEDS: TRAMADOL HCL 50 MG TABLET PO PRN (11:14)
[2018-11-05] MEDS: IRON SUCROSE COMPLEX 100 MG in SODIUM CHLORIDE 0.9% 50 ML IV SCH (11:21)
[2018-11-05] MEDS: METOLAZONE 2.5 MG TABLET PO SCH (11:21)
[2018-11-05] MEDS: FAMOTIDINE/PF 20 MG/2 ML VIAL IV SCH (11:21)
[2018-11-05] MEDS: ISOSORBIDE MONO 30MG TAB SR PO SCH (11:22)
[2018-11-05] MEDS: ASPIRIN 81 MG EC TAB PO SCH (11:22)
[2018-11-05] MEDS: CARVEDILOL 12.5 MG TABLET PO SCH ×2 (11:24→21:41)
[2018-11-05] MEDS: FUROSEMIDE 40 MG TABLET PO SCH ×2 (11:25→21:42)
[2018-11-05] MEDS: HYDRALAZINE HCL 25 MG TABLET PO SCH ×2 (11:26→21:00)
[2018-11-05] MEDS: POTASSIUM CHLORIDE 20 MEQ ERTAB PO PRN (16:25)
[2018-11-05] MEDS ORDERED: PEG 3350/NA SULF,BICARB,CL/KCL 4000 ML SOLN PO ONE (18:16)
[2018-11-05] MEDS: ATORVASTATIN CALCIUM 20 MG TABLET PO SCH (21:41)
[2018-11-06] VITALS (14 sets, daily range): BP systolic 102–140; BP diastolic 40–76
[2018-11-06] MEDS: INSULIN HUMULIN R 100 UNIT/ML 3ML SQ SCH ×3 (06:36→16:30)
[2018-11-06] MEDS ORDERED: PROPOFOL 10 MG/ML 20ML VIAL IV ONE ×2 (08:51)
[2018-11-06] MEDS: FAMOTIDINE/PF 20 MG/2 ML VIAL IV SCH (09:00)
[2018-11-06] MEDS: HYDRALAZINE HCL 25 MG TABLET PO SCH (09:00)
[2018-11-06] MEDS: METOLAZONE 2.5 MG TABLET PO SCH (12:10)
[2018-11-06] MEDS: ISOSORBIDE MONO 30MG TAB SR PO SCH (12:10)
[2018-11-06] MEDS: FUROSEMIDE 40 MG TABLET PO SCH (12:10)
[2018-11-06] MEDS: ASPIRIN 81 MG EC TAB PO SCH (12:10)
[2018-11-06] MEDS: CARVEDILOL 12.5 MG TABLET PO SCH (12:11)
[2018-11-06] MEDS: IRON SUCROSE COMPLEX 100 MG in SODIUM CHLORIDE 0.9% 50 ML IV SCH (12:12)
[2018-11-06] MEDS: POTASSIUM CHLORIDE 20 MEQ ERTAB PO PRN (12:16)
[2018-11-11] MEDS ORDERED: ERGOCALCIFEROL (VITAMIN D2) 50,000 UNIT CAPSULE PO SCH (09:00)
== END 2018-11-06 18:40 | disposition home or self-care (01) | DRG 683 ==
LOC: EDH 21:15 → EDHIP 11-04 00:25 → 3AH 11-04 02:18
PROVIDERS: ADMIT Internal Medicine; ATTEND Internal Medicine
PROC: 30233N1 Transfusion of Nonautologous Red Blood Cells into Peripheral Vein, Percutaneous Approach (ICD-10-PCS; principal; 2018-11-04)
PROC: 0DB98ZX Excision of Duodenum, Via Natural or Artificial Opening Endoscopic, Diagnostic (ICD-10-PCS; 2018-11-05)
PROC: 0DB68ZX Excision of Stomach, Via Natural or Artificial Opening Endoscopic, Diagnostic (ICD-10-PCS; 2018-11-05)
PROC: 0DJD8ZZ Inspection of Lower Intestinal Tract, Via Natural or Artificial Opening Endoscopic (ICD-10-PCS; 2018-11-05)
PROC: 0DBH8ZX Excision of Cecum, Via Natural or Artificial Opening Endoscopic, Diagnostic (ICD-10-PCS; 2018-11-05)
PROC: 0DBL8ZX Excision of Transverse Colon, Via Natural or Artificial Opening Endoscopic, Diagnostic (ICD-10-PCS; 2018-11-05)
PROC: 0DBN8ZX Excision of Sigmoid Colon, Via Natural or Artificial Opening Endoscopic, Diagnostic (ICD-10-PCS; 2018-11-05)
PROC: 0DB38ZX Excision of Lower Esophagus, Via Natural or Artificial Opening Endoscopic, Diagnostic (ICD-10-PCS; 2018-11-05)
DX: N17.9 Acute kidney failure, unspecified (principal); I13.2 Hypertensive heart and chronic kidney disease with heart failure and with stage 5 chronic kidney disease, or end stage renal disease; I50.20 Unspecified systolic (congestive) heart failure; K44.9 Diaphragmatic hernia without obstruction or gangrene; K64.8 Other hemorrhoids; K29.70 Gastritis, unspecified, without bleeding; D64.9 Anemia, unspecified; E11.65 Type 2 diabetes mellitus with hyperglycemia; E11.22 Type 2 diabetes mellitus with diabetic chronic kidney disease; J32.0 Chronic maxillary sinusitis; E11.649 Type 2 diabetes mellitus with hypoglycemia without coma; N18.5 Chronic kidney disease, stage 5; D12.0 Benign neoplasm of cecum; E78.5 Hyperlipidemia, unspecified; E78.00 Pure hypercholesterolemia, unspecified; K57.30 Diverticulosis of large intestine without perforation or abscess without bleeding; E87.6 Hypokalemia; K63.5 Polyp of colon; R62.7 Adult failure to thrive; D50.9 Iron deficiency anemia, unspecified
CPT/HCPCS: 36415; 36430; 43239; 45378; 45380; 45385; 70450; 71045; 76770; 80053; 81003; 82150; 82270; 82550; 82728; 82948; 83540; 83605; 83690; 83880; 84100; 84132; 84443; 84484; 85025; 85045; 85610; 85730; 86850; 86900; 86901; 86922; 87040; 87804; 93005; 97039; A4606; G0378; J0885; J1756; J1815; J2704; J3490; J7040; P9016

== ENCOUNTER 2019-10-30 22:59 | Inpatient (IN) | payer MEDICARE ==
[~2019-10-30] VITALS: Ht 154.9 cm; Wt 48.1 kg
[~2019-10-30 22:59] MED LIST changes: -ALEN70TA10 PO; +CEFP200T14 PO; +Folic Acid/Vitamin B Comp W-C PO; +INSU100I24 SQ; -INSU3INS3 SQ; +IRON1CAP30 PO; +LUBI24CA2 PO
[2019-10-30 23:39] LABS: BASOPHILS % (AUTO) 0.9 % (0.0-5.0); EOSINOPHILS % (AUTO) 5.5 % (0.0-8.0); LYMPHOCYTES % (AUTO) 33.6 % (21.0-51.0); MEAN CORPUSCULAR HEMOGLOBIN 39.8 pg (27.0-33.0); MEAN CORPUSCULAR VOLUME 99.6 fL (79-99); MONOCYTES % (AUTO) 12.8 % (3.0-13.0); PLATELET COUNT (AUTO) 275 K/uL (130-400); RED BLOOD CELL COUNT(AUTO) 2.31 MIL/uL (4.00-5.50); RED CELL DISTRIBUTION WIDTH 15.8 % (11.0-15.5); WHITE BLOOD COUNT (AUTO) 4.7 K/uL (4.8-10.8)
[2019-10-30 23:52] LABS: ALBUMIN 3.6 g/dL (3.5-5.0); BILIRUBIN,TOTAL 0.4 mg/dL (0.2-1.0); CREATININE 4.9 mg/dL (0.5-1.5); POTASSIUM 5.3 mmol/L (3.5-5.1); TOTAL PROTEIN, SERUM 7.6 g/dL (6.0-8.3)
[2019-10-31 01:06] LABS: INR 0.98 (0.85-1.15); PARTIAL THROMBOPLASTIN TIME 23.7 SEC (26.3-35.5); PROTHROMBIN TIME 10.6 SEC (9.6-11.6)
[2019-10-31 01:14] LABS: MAGNESIUM 3.1 mg/dL (1.80-2.40); THYROID STIMULATING HORMONE 1.96 uIU/mL (0.36-3.74)
[2019-10-31 02:49] LABS: APPEARANCE,URINE Clear (CLEAR); BILIRUBIN,URINE Negative (NEGATIVE); COLOR,URINE Yellow (YELLOW); GLUCOSE, URINE (UA) Negative (NEGATIVE); KETONES,URINE Negative (NEGATIVE); LEUKOCYTE ESTERASE ,URINE Large (NEGATIVE); NITRATE,URINE Negative (NEGATIVE); OCCULT BLOOD,URINE Negative (NEGATIVE); PROTEIN,URINE Trace mg/dL (NEGATIVE); UROBILINOGEN,URINE 0.2 mg/dL (0.2-1.0)
[2019-10-31 03:05] LABS: BACTERIA,URINE Few /HPF (None Seen); RBC,URINE None Seen /HPF (0-1); YEAST,URINE BUDDING Rare /HPF (None Seen)
[2019-10-31] MEDS ORDERED: DiphenhydrAMINE HCL 50 MG/ML VIAL IV PRN (03:15)
[2019-10-31] MEDS ORDERED: ONDANSETRON HCL 4 MG/2 ML VIAL IV PRN (03:15)
[2019-10-31] MEDS ORDERED: CEFTRIAXONE SODIUM 1 GM IVP SCH (03:15)
[2019-10-31] MEDS ORDERED: DIPHENHYDRAMINE HCL 25 MG CAPSULE PO PRN (03:15)
[2019-10-31] MEDS ORDERED: NITROGLYCERIN 0.4 MG SL TAB SL PRN (03:15)
[2019-10-31] MEDS ORDERED: CEFTRIAXONE SODIUM 1 GM ONE (04:43)
[2019-10-31 06:03] LABS: BASOPHILS % (AUTO) 0.5 % (0.0-5.0); EOSINOPHILS % (AUTO) 5.9 % (0.0-8.0); MEAN CORPUSCULAR HEMOGLOBIN 34.3 pg (27.0-33.0); MEAN CORPUSCULAR HGB CONC 34.6 g/dL (32.0-36.0); MONOCYTES % (AUTO) 14.3 % (3.0-13.0); PLATELET COUNT (AUTO) 206 K/uL (130-400); RED BLOOD CELL COUNT(AUTO) 2.07 MIL/uL (4.00-5.50); RED CELL DISTRIBUTION WIDTH 15.3 % (11.0-15.5); WHITE BLOOD COUNT (AUTO) 3.9 K/uL (4.8-10.8)
[2019-10-31 06:08] LABS: HEMATOCRIT 20.5 % (36-48)
[2019-10-31 06:48] LABS: ALBUMIN 2.9 g/dL (3.5-5.0); BILIRUBIN,TOTAL 0.2 mg/dL (0.2-1.0); CREATININE 4.5 mg/dL (0.5-1.5); MAGNESIUM 2.7 mg/dL (1.80-2.40); POTASSIUM 4.1 mmol/L (3.5-5.1); TOTAL PROTEIN, SERUM 6.4 g/dL (6.0-8.3)
[2019-10-31] MEDS ORDERED: GLUCAGON 1MG KIT 1 MG ML IM PRN (07:00)
[2019-10-31] MEDS ORDERED: DEXTROSE 50%-WATER 50 ML DISP.SYRIN IV PRN (07:00)
[2019-10-31] MEDS ORDERED: FAMOTIDINE 20MG TAB 20 MG TAB ONE (07:29)
[2019-10-31] MEDS ORDERED: ENOXAPARIN SODIUM 30 MG/0.3 ML SQ ONE (07:29)
[2019-10-31] MEDS: INSULIN HUMULIN R 100 UNIT/ML 3ML SQ SCH ×4 (07:30→21:00)
[2019-10-31] MEDS: FAMOTIDINE 20MG TAB 20 MG TAB PO SCH ×2 (09:00→21:00)
[2019-10-31] MEDS: ENOXAPARIN SODIUM 30 MG/0.3 ML SQ SCH (09:00)
[2019-10-31 12:15] LABS: BASOPHILS % (AUTO) 0.7 % (0.0-5.0); EOSINOPHILS % (AUTO) 5.1 % (0.0-8.0); HEMATOCRIT 27.2 % (36-48); LYMPHOCYTES % (AUTO) 22.9 % (21.0-51.0); MEAN CORPUSCULAR HEMOGLOBIN 30.5 pg (27.0-33.0); MEAN CORPUSCULAR HGB CONC 31.6 g/dL (32.0-36.0); MEAN CORPUSCULAR VOLUME 96.5 fL (79-99); MONOCYTES % (AUTO) 10.5 % (3.0-13.0); NEUTROPHILS % (AUTO) 60.6 % (40.0-77.0); PLATELET COUNT (AUTO) 276 K/uL (130-400); RED BLOOD CELL COUNT(AUTO) 2.82 MIL/uL (4.00-5.50); RED CELL DISTRIBUTION WIDTH 15.5 % (11.0-15.5); WHITE BLOOD COUNT (AUTO) 4.5 K/uL (4.8-10.8)
[2019-10-31] MEDS: SODIUM CHLORIDE 0.9% 1000ML 1,000 ML IV SCH (13:09)
[2019-10-31 16:00] VITALS: BP 151/70
[2019-10-31] MEDS ORDERED: IRON1CAP32 PO (17:56)
[2019-10-31] MEDS ORDERED: INSU100C6 SQ (17:56)
[2019-10-31] MEDS ORDERED: HYDR-4153 PO (17:56)
[2019-10-31] MEDS ORDERED: TRAM50TA4 PO (17:56)
[2019-10-31] MEDS ORDERED: METO2.5T2 PO (17:56)
[2019-10-31] MEDS ORDERED: ISOS30TA6 PO (17:56)
[2019-10-31] MEDS ORDERED: AEC81 PO (17:56)
[2019-10-31] MEDS ORDERED: FERR-82 PO (17:56)
[2019-10-31] MEDS ORDERED: FURO-151 PO (17:56)
[2019-10-31] MEDS ORDERED: ERGO500014 PO (17:56)
[2019-10-31] MEDS ORDERED: ATOR10 PO (17:56)
[2019-10-31] MEDS ORDERED: CARV12.511 PO (17:56)
[2019-10-31] MEDS ORDERED: [UNRECOGNIZED DRUG - OTHER] SQ (17:56)
[2019-10-31 20:00] VITALS: BP 143/56
[2019-11-01 00:04] VITALS: BP 117/58
[2019-11-01] MEDS: SODIUM CHLORIDE 0.9% 1000ML 1,000 ML IV SCH ×3 (00:59→16:10)
[2019-11-01 03:51] LABS: BASOPHILS % (AUTO) 0.6 % (0.0-5.0); LYMPHOCYTES % (AUTO) 16.4 % (21.0-51.0); MEAN CORPUSCULAR HEMOGLOBIN 42.7 pg (27.0-33.0); MEAN CORPUSCULAR HGB CONC 42.5 g/dL (32.0-36.0); MEAN CORPUSCULAR VOLUME 100.5 fL (79-99); MONOCYTES % (AUTO) 13.8 % (3.0-13.0); NEUTROPHILS % (AUTO) 63.8 % (40.0-77.0); PLATELET COUNT (AUTO) 256 K/uL (130-400); RED BLOOD CELL COUNT(AUTO) 1.99 MIL/uL (4.00-5.50); RED CELL DISTRIBUTION WIDTH 15.6 % (11.0-15.5); WHITE BLOOD COUNT (AUTO) 4.8 K/uL (4.8-10.8)
[2019-11-01 04:03] VITALS: BP 130/58
[2019-11-01 04:07] LABS: % IRON SATURATION 13.8 % (22-44)
[2019-11-01 04:15] LABS: CREATININE 4.4 mg/dL (0.5-1.5); MAGNESIUM 2.7 mg/dL (1.80-2.40); PHOSPHORUS 4.5 mg/dL (2.5-4.9); POTASSIUM 4.3 mmol/L (3.5-5.1); THYROID STIMULATING HORMONE 0.98 uIU/mL (0.36-3.74)
[2019-11-01] MEDS: INSULIN HUMULIN R 100 UNIT/ML 3ML SQ SCH ×4 (07:30→21:00)
[2019-11-01 08:00] VITALS: BP 131/52
[2019-11-01] MEDS: CEFTRIAXONE SODIUM 1 GM IVP SCH (10:08)
[2019-11-01] MEDS: FAMOTIDINE 20MG TAB 20 MG TAB PO SCH ×2 (10:08→22:19)
[2019-11-01] MEDS: ENOXAPARIN SODIUM 30 MG/0.3 ML SQ SCH (10:09)
[2019-11-01 11:00] VITALS: BP 132/63
--- NOTE | 2019-11-01 11:52 | NUR ---
CONTACT AND SPOKE WITH ROWAN CARMEN, PT HAS HX OF FALL , FACIAL JAW BRUISE NOTED, PT WANTED TO SHOWER PRETTY WEAK, ORDERED FOR PT EVAL AND TREAT. TORB AND CONFIRMED.
--- NOTE | 2019-11-01 14:02 | NUR ---
MAKES HIS ROUNDS, INFORMED PT SHE NEEDS TO STAY A DAY OR TWO. ORDERED VENOFER 300MG IV DAILY FOR 2 DAYS. CBC AND BMP IN AM. VORB AND CONFIRMED.
[2019-11-01] MEDS ORDERED: COMPOUND IV MISC 1 EACH IVSOLN MISC PRN (14:15)
[2019-11-01] MEDS: ACETAMINOPHEN 325 MG TAB PO PRN (15:10)
[2019-11-01 16:00] VITALS: BP 149/67
--- NOTE | 2019-11-01 16:59 | NUR ---
CM NOTE/IA PER PATIENT, IS SEMI INDEPENDENT, HAS USE OF WALKER AND WHEELCHAIR, LIVES WITH SON, HAS PROVIDER DAILY (SON), AND FEEL SAFE TO DC HOME ONCE DISCHARGED FROM HOSPITAL. Addendum: 11/02/19 at 1700 by BAL WEST RN CM Amended: Links added.
--- NOTE | 2019-11-01 18:50 | NUR ---
SPOKE WITH PT AND PT SON, REQUESTED THAT THEY WANT TO SEE PT TOMORROW NOT , INFORMED PT AND PT SON WILL INFORM HOSPITALIST IN THE MORNING. INFORMED CRISIS CLINICIAN.
--- NOTE | 2019-11-01 19:50 | NUR ---
given handoff for incoming nurse radha rn for continuity of care.
[2019-11-01 20:12] VITALS: BP 157/66
[2019-11-01] MEDS ORDERED: IRON SUCROSE COMPLEX 300 MG in SODIUM CHLORIDE 0.9% 50 ML IV SCH (21:00)
[2019-11-02 00:12] VITALS: BP 146/68
[2019-11-02 04:12] VITALS: BP 143/55
[2019-11-02] MEDS: SODIUM CHLORIDE 0.9% 1000ML 1,000 ML IV SCH (05:09)
[2019-11-02 05:29] LABS: BASOPHILS % (AUTO) 0.7 % (0.0-5.0); EOSINOPHILS % (AUTO) 6.5 % (0.0-8.0); LYMPHOCYTES % (AUTO) 28.8 % (21.0-51.0); MEAN CORPUSCULAR HEMOGLOBIN 30.8 pg (27.0-33.0); MEAN CORPUSCULAR HGB CONC 31.8 g/dL (32.0-36.0); MEAN CORPUSCULAR VOLUME 96.9 fL (79-99); MONOCYTES % (AUTO) 13.7 % (3.0-13.0); NEUTROPHILS % (AUTO) 50.1 % (40.0-77.0); PLATELET COUNT (AUTO) 268 K/uL (130-400); RED BLOOD CELL COUNT(AUTO) 2.89 MIL/uL (4.00-5.50); RED CELL DISTRIBUTION WIDTH 15.9 % (11.0-15.5)
[2019-11-02 05:30] LABS: ALBUMIN 3.1 g/dL (3.5-5.0); BILIRUBIN,TOTAL 0.2 mg/dL (0.2-1.0); CREATININE 4.1 mg/dL (0.5-1.5); POTASSIUM 3.9 mmol/L (3.5-5.1); TOTAL PROTEIN, SERUM 6.8 g/dL (6.0-8.3)
[2019-11-02 07:30] VITALS: BP 137/58
[2019-11-02] MEDS: INSULIN HUMULIN R 100 UNIT/ML 3ML SQ SCH (07:30)
[2019-11-02] MEDS: ENOXAPARIN SODIUM 30 MG/0.3 ML SQ SCH (09:06)
[2019-11-02] MEDS: FAMOTIDINE 20MG TAB 20 MG TAB PO SCH ×2 (09:06→21:08)
[2019-11-02] MEDS: CEFTRIAXONE SODIUM 1 GM IVP SCH (09:06)
[2019-11-02] MEDS: ACETAMINOPHEN 325 MG TAB PO PRN (09:07)
[2019-11-02] MEDS ORDERED: EPOETIN ALFA 10,000 UNIT/ML VIAL SQ SCH (09:15)
--- NOTE | 2019-11-02 09:36 | NUR ---
contact and spoke with pharmacy, ff up in [facility], asked them to change the time thats good for 2 days ordered by .
[2019-11-02 11:00] VITALS: BP 142/58
[2019-11-02 16:00] VITALS: BP 149/65
[2019-11-02 20:00] VITALS: BP 138/64
--- NOTE | 2019-11-02 20:24 | NUR ---
report given to nabil martin rn, to give kenyon @ 2100, safety maintained.
[2019-11-02] MEDS: INSULIN LISPRO 100 UNIT/ML 3ML SQ SCH (21:00)
[2019-11-03] VITALS: BP 133/60
[2019-11-03 04:00] VITALS: BP 131/58
[2019-11-03] MEDS: INSULIN LISPRO 100 UNIT/ML 3ML SQ SCH ×2 (06:06→11:21)
[2019-11-03 06:51] LABS: ALBUMIN 2.8 g/dL (3.5-5.0); BILIRUBIN,TOTAL 0.2 mg/dL (0.2-1.0); CREATININE 3.9 mg/dL (0.5-1.5); POTASSIUM 4.3 mmol/L (3.5-5.1); TOTAL PROTEIN, SERUM 6.2 g/dL (6.0-8.3)
--- NOTE | 2019-11-03 06:59 | NUR ---
Gonzalez catheter removed patient is due to void in 8hours.
[2019-11-03 07:33] LABS: BASOPHILS % (AUTO) 0.8 % (0.0-5.0); HEMATOCRIT 26.1 % (36-48); LYMPHOCYTES % (AUTO) 27.3 % (21.0-51.0); MEAN CORPUSCULAR HEMOGLOBIN 31.5 pg (27.0-33.0); MEAN CORPUSCULAR HGB CONC 32.2 g/dL (32.0-36.0); MEAN CORPUSCULAR VOLUME 97.8 fL (79-99); MONOCYTES % (AUTO) 13.6 % (3.0-13.0); NEUTROPHILS % (AUTO) 48.1 % (40.0-77.0); PLATELET COUNT (AUTO) 243 K/uL (130-400); RED BLOOD CELL COUNT(AUTO) 2.67 MIL/uL (4.00-5.50); RED CELL DISTRIBUTION WIDTH 16.4 % (11.0-15.5)
[2019-11-03 08:00] VITALS: BP 139/58
--- NOTE | 2019-11-03 08:00 | NUR ---
AM ASSESSMENT PT SITTING IN RECLINER WATCHING TV. A/O X 3. NO SOB. NO DISTRESS NOTED. DENIES CHEST PAIN OR DISCOMFORT. DENIES PALPITATIONS. TELE: SR 1st DEGREE OCC PACED. DENIES N/V AND/OR DIARRHEA. PT PENDING TO VOID, FC REMOVED THIS AM. UP W/ASSISTANCE. WALKER @ HOME. INSTRUCTED TO CALL FOR ASSISTANCE. CALL MILY W/IN REACH.
[2019-11-03] MEDS: CEFTRIAXONE SODIUM 1 GM IVP SCH (08:39)
[2019-11-03] MEDS: FAMOTIDINE 20MG TAB 20 MG TAB PO SCH (08:40)
[2019-11-03] MEDS: ENOXAPARIN SODIUM 30 MG/0.3 ML SQ SCH (08:40)
--- NOTE | 2019-11-03 10:50 | NUR ---
VOID PT HAD INCONTINENT VOID @ THIS TIME.
[2019-11-03 11:00] VITALS: BP 151/61
--- NOTE | 2019-11-03 13:05 | NUR ---
STATUS/DISCHARGE TELE DEEPTHI REMOVED @ THIS TIME. PENDING FOR DR CANTU TO CLEAR PT FOR DISCHARGE HOME.
--- NOTE | 2019-11-03 14:08 | NUR ---
DISCHARGE VERBAL & WRITTEN DISCHARGE INSTRUCTIONS REVIEWED & GIVEN TO PT. QUESTIONS ENCOURAGED & CLARIFIED. PROPER CARE & PREVENTION OF UREMIA & DEHYDRATION. HOME MEDICATIONS REVIEWED. PT INFORMED TO HOLD METALOZONE. F/U APPTS REVIEWED. IV DC'D @ THIS TIME. PT'S BELONGINGS GATHERED. CALL PLACED TO PT'S SON, SON TO DRESS CAP MAKER PT FROM HOSPITAL. WILL NOTIFY STAFF UPON ARRIVAL TO EMERGENCY RM ENTRANCE.
--- NOTE | 2019-11-03 14:45 | NUR ---
DISCHARGE SON HERE TO TAKE PT HOME. PT TAKEN TO PRIVATE VEHICLE VIA WC BY CAROLYN PCP. NO DISTRESS NOTED.
== END 2019-11-03 14:45 | disposition home or self-care (01) | DRG 640 ==
LOC: EDH 22:59 → EDHIP 10-31 02:38 → 4BH 10-31 13:08
PROVIDERS: ADMIT Family Medicine; ATTEND Family Medicine
DX: E86.0 Dehydration (principal); N18.6 End stage renal disease; N17.9 Acute kidney failure, unspecified; I13.2 Hypertensive heart and chronic kidney disease with heart failure and with stage 5 chronic kidney disease, or end stage renal disease; E87.1 Hypo-osmolality and hyponatremia; I50.9 Heart failure, unspecified; I25.10 Atherosclerotic heart disease of native coronary artery without angina pectoris; E87.5 Hyperkalemia; E83.41 Hypermagnesemia; E11.22 Type 2 diabetes mellitus with diabetic chronic kidney disease; D63.1 Anemia in chronic kidney disease; E11.649 Type 2 diabetes mellitus with hypoglycemia without coma; E78.5 Hyperlipidemia, unspecified; E11.42 Type 2 diabetes mellitus with diabetic polyneuropathy; M81.0 Age-related osteoporosis without current pathological fracture; Z79.4 Long term (current) use of insulin; Z91.19 Patient's noncompliance with other medical treatment and regimen; Z83.3 Family history of diabetes mellitus; Z82.49 Family history of ischemic heart disease and other diseases of the circulatory system; Z84.1 Family history of disorders of kidney and ureter; Z79.899 Other long term (current) drug therapy
CPT/HCPCS: 36415; 71045; 80048; 80053; 81001; 82330; 82550; 82948; 83540; 83550; 83735; 84100; 84443; 84484; 85025; 85610; 85730; 86900; 86901; 87040; 87088; 93005; 97039; G0378; J0696; J0885; J1650; J1756; J1815; J2405